=== PATIENT | female | born 1990 | race Caucasian/White ===

== ENCOUNTER 2021-05-28 10:58 | Outpatient (CLI) | payer OTHER, MEDICAID ==
[~2021-05-28] VITALS: Ht 160 cm; Wt 92.3 kg
--- NOTE | 2021-05-28 11:07 | NUR ---
Admits to L&D for decreased movement, c/o fluid on sheet when she woke up. Ambulatory to unit, accompanied by significant other (father of baby). Reports she had intercourse this am after noting decreased movement and wet spot on bed.
[2021-05-28 11:15] VITALS: BP 119/66; PULSE 69; TEMP 98.1
--- NOTE | 2021-05-28 11:15 | NUR ---
Amnitrace negative, note karen every 2 minutes, moderate strength upon palpation. SVE 3/50/-3, moderate consistency cervix, midposition. Amnitrace negative, exam dry, no pooling of fluid noted, no bloody show noted. Patient reports contractions becoming uncomfortable.
[2021-05-28] MEDS ORDERED: PRENATAL TABLET PO (11:26)
--- NOTE | 2021-05-28 12:04 | NUR ---
here for rounds.
[2021-05-28 12:10] VITALS: BP 119/65; PULSE 62
[2021-05-28 12:12] LABS: ALBUMIN 3.7 gm/dL (3.5-5.0); BILIRUBIN,TOTAL 0.2 mg/dL (0.0-1.0); CALCIUM 9.2 mg/dL (8.4-10.2); CREATININE, serum 0.38 (0.52-1.25); POTASSIUM 3.7 mmol/L (3.4-5.0); TOTAL PROTEIN 7.1 gm/dL (6.4-8.2)
--- NOTE | 2021-05-28 12:17 | NUR ---
verifies vertex presentation with bedside US. Repeat SVE by this grant writer unchanged. expresses concerns for decreased amniotic fluid around fetus, though no exact measurements obtained. Discusses with patient transfer to [facility], consult with MFM, likely Ultrasound will be completed there.
[2021-05-28 12:19] LABS: BASO # 0.1 (0.0-0.2); BASO % 0.6 % (0.0-2.0); EOS # 0.1 (0.0-0.7); EOS % 0.9 % (0-4.0); GRAN # 6.2 (1.4-6.5); GRAN % 70.1 % (42.2-75.2); HEMATOCRIT 37.3 % (37.0-47.0); HEMOGLOBIN 12.6 g/dl (12.5-16.0); LYMPH # 1.7 (1.2-3.4); LYMPH % 18.7 % (20.0-51.0); MEAN CELL VOLUME 93 fl (80.0-100.0); MEAN CORPUSCULAR HEMOGLOBIN 31 pg (27.0-31.0); MEAN CORPUSCULAR HGB CONC 34 g/dl (33.0-37.0); MEAN PLATELET VOLUME 10.9 fl (7.4-10.4); MONO # 0.8 (0.1-0.6); MONO % 9.2 % (1.7-9.3); PLATELET COUNT 186 K/mm3 (130-400); RED BLOOD COUNT 4.03 M/mm3 (4.10-5.30)
--- NOTE | 2021-05-28 12:25 | NUR ---
has spoken with , OBISABEL, [facility], who has agreed to accept patient.
[2021-05-28 12:38] LABS: COLLECTION METHOD CLEAN CATCH
[2021-05-28 12:40] VITALS: BP 118/55; PULSE 80
[2021-05-28 12:44] LABS: PH 7 (5-8); SQUAMOUS EPITHELIAL 0-2 /hpf; URINE APPEARANCE Clear; URINE BACTERIA None Seen /hpf; URINE BILIRUBIN Negative (NEGATIVE); URINE BLOOD Negative (NEGATIVE); URINE COLOR Straw; URINE GLUCOSE Negative (NEGATIVE); URINE KETONE Negative (NEGATIVE); URINE LEUKOCYTE ESTERASE Negative (NEGATIVE); URINE NITRATE Negative (NEGATIVE); URINE PROTEIN(semi-quant) Negative (NEGATIVE); URINE RBC 0-2 /hpf; URINE UROBILINOGEN Negative (NEGATIVE)
--- NOTE | 2021-05-28 12:45 | NUR ---
Report called to Maddie Bey RN.
--- NOTE | 2021-05-28 13:14 | NUR ---
EMS here for transport. Taken off EFM @ this time. Up to BR prior to transfer.
--- NOTE | 2021-05-28 13:16 | NUR ---
Off of unit per EMS cart.
== END 2021-05-28 13:16 | disposition home or self-care (01) ==
LOC: LDRO 10:58
PROVIDERS: Obstetrics & Gynecology
DX: O36.8130 Decreased fetal movements, third trimester, not applicable or unspecified (principal); Z3A.32 32 weeks gestation of pregnancy
CPT/HCPCS: J0290; J0702; J7120

== ENCOUNTER 2021-06-16 20:06 | Outpatient (CLI) | payer OTHER, MEDICAID ==
[~2021-06-16] VITALS: Ht 157.5 cm; Wt 91.4 kg
[~2021-06-16 20:06] MED LIST: PRENATAL TABLET PO
--- NOTE | 2021-06-16 20:15 | NUR ---
2014- PT PRESENTS TO LDR COMPLAINING OF CONTRACTIONS, AMBULATORY TO ROOM LR5, CHANGED INTO GOWN. 2019- EF X2 APPLIED. PT STATES SHE HAS BEEN RAMÓN ALL DAY, DENIES LEAKING FLUID OR VAGINAL BLEEDING. STATES SHE HAS FELT THE BABY MOVE, BUT IT SEEMS LESS THAN NORMAL. PLAN OF CARE DISCUSSED AND QUESTIONS ANSWERED. 2029- SVE BY THIS NURSE / WITH ANTERIOR CERVIX. 2039- NURSING ADMISSION HISTORY AND ASSESSMENT COMPLETE. PT IS BREATHING THROUGH HER CONTRACTIONS AND SEEMS TO HAVE A CONSISTENT PATTERN AROUND EVERY 2 MINUTES. DISCUSSED WITH PT THAT NURSE WOULD NOTIFIY DOCTOR AND GET ORDERS. QUESTIONS ANSWERED. 2042- DR LOUIE NOTIFIED CHARTED AND ORDERS RECEIVED. 2054- PT UPDATED ON PLAN OF CARE AND QUESTIONS ANSWERED. PT AGREEABLE TO IV AND TERBUTALINE AT THIS TIME. 2099- IV START TO RIGHT WRIST CHARTED. LR INFUSING. 2107- TERBUTALINE TO RIGHT UPPER ARM. BP EVERY 5 MIN.
[2021-06-16 21:00] VITALS: BP 125/81; PULSE 77; TEMP 98.1
[2021-06-16 21:30] VITALS: BP 129/72; PULSE 83
--- NOTE | 2021-06-16 21:50 | NUR ---
2149- NURSE TO BEDSIDE. IV FLUIDS INFUSED AND TO SALINE LOCK. PT REPORTS THAT HER CONTRACTIONS SLOWED DOWN A BIT, BUT THEY STILL HURT. SVE BY THIS NURSE WITH NO CHANGE. DISCUSSED WITH PT POSSIBLE NEXT STEPS IN PLAN OF CARE AND ANSWERED QUESTIONS. 2154- DR LOUIE CALLED CHARTED, ORDERS RECEIVED FOR THERAPUTIC REST. 2199- PT UPDATED ON PLAN FOR THERAPUTIC REST. SHE IS GOING TO TALK WITH HER BOYFRIEND TO BE SURE HE CAN WATCH THEIR OTHER CHILD. 2204- PT UP TO BATHROOM. 2224- PT BACK ON MONITOR. IS AGREEABLE WITH PROCEEDING WITH THERAPUTIC REST. 2254- INJECTIONS GIVEN CHARTED. PT TOLERATED WELL.
[2021-06-16 22:00] VITALS: BP 117/71; PULSE 85
--- NOTE | 2021-06-16 23:35 | NUR ---
2335- EFM AND TOCO TURNED OFF AFTER 30 MINUTE STRIP. PATIENT TO REST AND SLEEP. PATIENT VERBALIZED UNDERSTANDING TO CALL OUT IF SHE WAKES UP SO WE CAN GET ANOTHER 30 MINUTE STRIP ON FHR AND CONTRACTIONS.
[2021-06-17 06:15] VITALS: BP 122/69; PULSE 72; TEMP 98.1
[2021-06-17 07:16] VITALS: BP 113/71; PULSE 82
--- NOTE | 2021-06-17 07:25 | NUR ---
Discharge instructions and follow up care reviewed with pt. Pt verbalized an understanding, agreed with the plan and states no questions or concerns.
== END 2021-06-17 07:30 | disposition home or self-care (01) ==
LOC: LDRO 20:06 → LDR 20:25 → LDRO 06-17 07:30
DX: O62.9 Abnormality of forces of labor, unspecified (principal); Z3A.35 35 weeks gestation of pregnancy
CPT/HCPCS: OP; J0702; J2270; J2550; J3105; J7120

== ENCOUNTER 2021-06-18 07:58 | Outpatient (CLI) | payer OTHER, MEDICAID ==
[~2021-06-18] VITALS: Ht 157.5 cm; Wt 92.3 kg
--- NOTE | 2021-06-18 08:00 | NUR ---
0800- Pt ambulates on unit for second Betamethasone injection. 0802- Pt into bed. EFM and TOCO on and tracing. O2 sat monitor on and tracing maternal HR. VSS. Assessment completed. Pt denies contractions, LOF, VB. +FM per Pt and heard on monitor by this RN. 0824- EFM and TOCO off. Pt up to void. 0830- Discharge paperwork given and explained. Pt ambulates off unit with .
[2021-06-18 08:24] VITALS: BP 113/69; PULSE 72
== END 2021-06-18 08:30 | disposition home or self-care (01) ==
LOC: LDRO 07:58
DX: O36.0130 Maternal care for anti-D [Rh] antibodies, third trimester, not applicable or unspecified (principal); Z3A.35 35 weeks gestation of pregnancy
CPT/HCPCS: J0702

== ENCOUNTER 2021-07-03 19:24 | Inpatient (IN) | payer OTHER, MEDICAID ==
[~2021-07-03] VITALS: Ht 157.5 cm; Wt 95.5 kg
[2021-07-03] VITALS (9 sets, daily range): BP systolic 122–141; BP diastolic 60–86; PULSE 65–93; TEMP 98.8
--- NOTE | 2021-07-03 19:30 | NUR ---
Ambulatory to unit for labor check, accompanied by significant other. Oriented to room ,plan of care, monitor. PT tense, panting and writhing with contractions. Pt reports 'contractions started 2 hours ago'. SVE 7-8, bulging bag of water. Requesting epidural,
--- NOTE | 2021-07-03 20:05 | NUR ---
Bunny NAIL ARTIST into room for epidural placement. PT moves to sit on edge of bed. 2013 test dose. 2018 pt to LW wedge.
[2021-07-03 20:14] LABS: BASO % 0.3 % (0.0-2.0); EOS % 0.4 % (0-4.0); GRAN # 7.5 (1.4-6.5); GRAN % 73.4 % (42.2-75.2); HEMATOCRIT 38.3 % (37.0-47.0); HEMOGLOBIN 13.2 g/dl (12.5-16.0); LYMPH # 1.8 (1.2-3.4); LYMPH % 17.3 % (20.0-51.0); MEAN CELL VOLUME 92 fl (80.0-100.0); MEAN CORPUSCULAR HEMOGLOBIN 32 pg (27.0-31.0); MEAN CORPUSCULAR HGB CONC 35 g/dl (33.0-37.0); MEAN PLATELET VOLUME 11.2 fl (7.4-10.4); MONO # 0.8 (0.1-0.6); PLATELET COUNT 187 K/mm3 (130-400); RED BLOOD COUNT 4.18 M/mm3 (4.10-5.30); REDCELL DISTRIBUTION WIDTH-CV 13.6 % (11.5-14.5)
--- NOTE | 2021-07-03 20:21 | NUR ---
EDINSON escobedo. Pt relaxed, comfortable. 2023 Dr Christine notified to come for delivery.
--- NOTE | 2021-07-03 20:42 | NUR ---
FHT's with deceleration to 110's with peak of contraction, returns to baseline by end of contraction. 2044 Pet set up and prepped for delivery. NSY notified. [address] Christine.
--- NOTE | 2021-07-03 20:54 | NUR ---
Placenta delivers spont and intact with 3 vessel cord. 30units Pitocin in 500cc LR piggybacked to mainline LR and started at bolus rate. Pt and boyfriend loving and excited about .
--- NOTE | 2021-07-03 21:04 | NUR ---
Perineal repair complete, pericare performed, ice pack to perineum and bed back together.
--- NOTE | 2021-07-03 23:50 | NUR ---
Epidural catheter dc'd, IV to INT. Up to bathroom with steady gait, voids large amount, performs own pericare. Ambulates to room.
[2021-07-04 03:16] VITALS: BP 108/59; PULSE 67; TEMP 98.7
[2021-07-04] MEDS ORDERED: IBU600 MG PO (09:01)
[2021-07-04 09:30] VITALS: BP 112/58; PULSE 110; TEMP 98.6
[2021-07-04 13:20] VITALS: BP 107/91; PULSE 87; TEMP 98.1
[2021-07-04 18:35] VITALS: BP 110/69; PULSE 74; TEMP 98.7
--- NOTE | 2021-07-04 22:40 | NUR ---
Discharge instructions and paperwork reviewed with patient, verbalized understanding. Pt ambulatory off unit with belongings and infant. Escorted off unit by LUCINDA Caballero.
== END 2021-07-04 22:40 | disposition home or self-care (01) | DRG 807 ==
LOC: LDRO 19:24 → LDR 19:35 → LDRO 20:04 → OB 07-04
PROVIDERS: Obstetrics & Gynecology; ADMIT Student in an Organized Health Care Education/Training Program
PROC: 10E0XZZ Delivery of Products of Conception, External Approach (ICD-10-PCS; principal; 2021-07-03)
PROC: 0HQ9XZZ Repair Perineum Skin, External Approach (ICD-10-PCS; 2021-07-03)
PROC: 10907ZC Drainage of Amniotic Fluid, Therapeutic from Products of Conception, Via Natural or Artificial Opening (ICD-10-PCS; 2021-07-03)
DX: O70.0 First degree perineal laceration during delivery (principal); Z37.0 Single live birth; Z3A.37 37 weeks gestation of pregnancy
CPT/HCPCS: J2590; J2795; J7120